=== PATIENT | female | born 1995 | race African-American/Black ===

== ENCOUNTER 2017-01-14 22:50 | Emergency (ER) | payer SELFPAY ==
[~2017-01-14 22:50] MED LIST: CEPH-460 PO; PYRI200T4 PO
[2017-01-14 22:51] VITALS: BP 114/56; PULSE 87; RESP 18; TEMP 97.9; O2SAT 100
== END 2017-01-15 02:15 | disposition left against medical advice (07) ==
LOC: NED 01-15 02:10
DX: R30.0 Dysuria (principal)
CPT/HCPCS: 99281

== ENCOUNTER 2017-10-02 05:41 | Emergency (ER) | payer OTHER ==
[~2017-10-02] VITALS: Ht 157.5 cm; Wt 58.0 kg
[2017-10-02 05:42] VITALS: BP 112/58; PULSE 85; RESP 16; TEMP 99.1; O2SAT 97
[2017-10-02 06:12] VITALS: BP 107/55; PULSE 76; RESP 20; O2SAT 100
--- NOTE | 2017-10-02 06:20 | PD ---
HPI Chief Complaint: GI Complaint Time Seen by Provider: 05:58 Travel History International Travel<30 days: No Contact w/Intl Traveler<30days: No Traveled to known affect area: No History of Present Illness HPI The patient is a 22 year old female who presents to the [facility] emergency department with a history of vomiting with her period over the last few months. Her periods have been more painful than usual recently. The vomiting lasts for 15 hours and occurs during the heaviest part of her cycle on the second day. Her cycles usually last 5-6 days. Her cycle began again yesterday. She has nausea and vomiting x9 that began today. She at times on the third day of her cycle will also develop diarrhea. She denies any sick contacts. She denies any recent antibiotic use. She denies having any recent fevers or chills, neck pain, chest pain, shortness of breath, urinary symptoms, or neurologic symptoms. She had cough and congestion last week that has improved. The patient has a family history of anemia. LMP: 10/01/17. [facility] Past Medical History Narrative Medical The patient's past medical history is significant for a prior ovarian cyst. Medical History: Denies Significant Hx Diminished Hearing: No Tetanus Vaccination: Unknown ?: Not LMP: 09/30/2017 Past Surgical History Surgical History: No Previous Surgery Social History Alcohol Use: Yes (social) Tobacco Use: Yes (5-6 cigs per day.) Substance Use: No Allergies-Medications (Allergen,Severity, Reaction): Coded Allergies: metronidazole (Unverified Allergy, Severe, RASH, 10/02/17) Reported Meds & Prescriptions Reported Meds & Active Scripts Active No Active Prescriptions or Reported Medications Review of Systems Except as stated in HPI: all other systems reviewed are Neg General / Constitutional: No: Fever Eyes: No: Visual changes HENT: No: Headaches Cardiovascular: No: Chest Pain or Discomfort Respiratory: No: Shortness of Breath Gastrointestinal: Positive: Nausea, Vomiting, Diarrhea, Abdominal Pain Genitourinary: Positive: Pelvic Pain, Vaginal Bleeding, No: Dysuria Musculoskeletal: No: Pain Skin: No Rash Neurologic: No: Weakness Psychiatric: No: Depression Endocrine: No: Polydipsia Hematologic/Lymphatic: No: Easy Bruising Physical Exam Narrative General: The patient is a well-developed well-nourished female in no acute distress. Head and Neck exam: Head is normocephalic atraumatic. Eyes: EOMI, pupils are equal round and reactive to light. Nose: Midline septum with pink mucous membranes Mouth: Dentition unremarkable. Moist mucus membranes. Posterior oropharynx is not erythematous. No tonsillar hypertrophy. Uvula midline. Airway patent. Neck: No palpable lymphadenopathy. No nuchal rigidity. No thyromegaly. Cardiovascular: Regular rate and rhythm without murmurs, gallops, or rubs. Lungs: Clear to auscultation bilaterally. No wheezes, rhonchi, or rales. Abdomen: Soft, without tenderness to palpation in all 4 quadrants of the abdomen. No guarding, rebound, or rigidity. Normal bowel sounds are audible. No tenderness on palpation of McBurney's point. Extremities: No clubbing, cyanosis, or edema. 2+ pulses in all 4 extremities. No calf tenderness on palpation. Back: No costovertebral angle tenderness to palpation. Neurologic Exam: Grossly nonfocal. Skin Exam: No rash noted. Intact skin that is warm and dry. Data Data Last Documented VS Vital Signs Date Time Temp Pulse Resp B/P (MAP) Pulse Ox O2 Delivery O2 Flow Rate FiO2 10/02/17 06:34 20 10/02/17 06:33 82 100 Room Air 10/02/17 05:42 99.1 Orders Orders Complete Blood Count With Diff (10/02/17 06:18) Comprehensive Metabolic Panel (10/02/17 06:18) C-Reactive Protein (Crp) (10/02/17 06:18) Lipase (10/02/17 06:18) Urinalysis - C+S If Indicated (10/02/17 06:18) Iv Access Insert/Monitor (10/02/17 06:18) Ecg Monitoring (10/02/17 06:18) Oximetry (10/02/17 06:18) Ed Urine Pregnancytest Poc (10/02/17 06:18) Sodium Chlor 0.9% 1000 Ml Inj (Ns 1000 M (10/02/17 06:45) Ondansetron Inj (Zofran Inj) (10/02/17 06:45) Labs Laboratory Tests Test 10/02/17 06:15 White Blood Count 11.2 TH/MM3 Red Blood Count 3.54 MIL/MM3 Hemoglobin 12.5 GM/DL Hematocrit 35.9 % Mean Corpuscular Volume 101.7 FL Mean Corpuscular Hemoglobin 35.4 PG Mean Corpuscular Hemoglobin Concent 34.8 % Red Cell Distribution Width 12.5 % Platelet Count 272 TH/MM3 Mean Platelet Volume 7.6 FL Neutrophils (%) (Auto) 88.5 % Lymphocytes (%) (Auto) 7.5 % Monocytes (%) (Auto) 3.4 % Eosinophils (%) (Auto) 0.2 % Basophils (%) (Auto) 0.4 % Neutrophils # (Auto) 9.9 TH/MM3 Lymphocytes # (Auto) 0.8 TH/MM3 Monocytes # (Auto) 0.4 TH/MM3 Eosinophils # (Auto) 0.0 TH/MM3 Basophils # (Auto) 0.0 TH/MM3 CBC Comment DIFF FINAL Differential Comment MDM Medical Decision Making Medical Screen Exam Complete: Yes Emergency Medical Condition: Yes Medical Record Reviewed: Yes Differential Diagnosis Viral syndrome, versus dysmenorrhea with vomiting, versus , versus cyclic vomiting syndrome, versus gastroparesis Narrative Course During the course of the patients emergency department visit, the patients history, examination, and differential diagnosis were reviewed with the patient. The patient was placed on a school lunch monitor with oximetry and frequent blood pressure monitoring. The patient had IV access obtained and blood work sent for analysis. The patient was initially provided normal saline 1 L IV fluid bolus, Zofran 4 mg IV. The patient's laboratory studies remarkable for white count 11.2, hemoglobin 12.5, platelets 272 with 88.5 neutrophils. The patient's other laboratory studies are pending at the conclusion of my shift. The patient's case was checked out to the oncoming emergency physician to disposition the patient based on the conclusion of the patient's workup. Diagnosis Primary Impression: Vomiting Qualified Codes: R11.2 - Nausea with vomiting, unspecified Scripts No Active Prescriptions or Reported Meds Britta Vázquez MD Oct 02, 2017 06:20
[2017-10-02 06:33] VITALS: PULSE 82; O2SAT 100
[2017-10-02] MEDS ORDERED: SODIUM CHLOR 0.9% 1000 ML INJ 1,000 ML IV ONE (06:45)
[2017-10-02] MEDS ORDERED: ONDANSETRON HCL 4 MG/2 ML VIAL IV ONE (06:45)
[2017-10-02 06:53] LABS: AUTOMATED NEUTROPHIL # 9.9 TH/MM3 (1.8-7.7); BASOPHIL % 0.4 % (0.0-2.0); EOSINOPHIL % 0.2 % (0.0-4.0); HEMATOCRIT 35.9 % (35.0-46.0); HEMO FLAGS DIFF FINAL; LYMPH % 7.5 % (9.0-44.0); LYMPHOCYTE # 0.8 TH/MM3 (1.0-4.8); MEAN CELL VOLUME 101.7 FL (80.0-100.0); MEAN CORPUSCULAR HEMOGLOBIN 35.4 PG (27.0-34.0); MEAN CORPUSCULAR HGB CONC 34.8 % (32.0-36.0); MONO % 3.4 % (0.0-8.0); NEUT % 88.5 % (16.0-70.0); PLATELET COUNT 272 TH/MM3 (150-450); RED BLOOD COUNT 3.54 MIL/MM3 (4.00-5.30); RED CELL DISTRIBUTION WIDTH 12.5 % (11.6-17.2); WHITE BLOOD COUNT 11.2 TH/MM3 (4.0-11.0)
[2017-10-02 06:57] LABS: BACTERIA, URINE OCC /hpf; BLOOD, URINE MOD (NEG); GLUCOSE,URINE NEG (NEG); KETONE, URINE 80 mg/dL (NEG); MUCUS URINE FEW /lpf (OCC); NITRITE,URINE NEG (NEG); PH, URINE 6.5 (5.0-8.5); SQUAMOUS EPITHELIAL CELL URINE 1 /hpf (0-5); URINE COLOR YELLOW (YELLW/STRAW)
--- NOTE | 2017-10-02 07:01 | PD ---
Physical Exam Date Seen by Provider: Oct 02, 2017 Time Seen by Provider: 06:59 Narrative The patient is a 22-year-old female was initially limited by the previous physician, Dr. Vázquez. Please refer to the initial history, physical, diagnostic evaluation, and treatment modality plan. The patient was signed out at 7 AM with laboratory evaluation pending. Data Data Last Documented VS Vital Signs Date Time Temp Pulse Resp B/P (MAP) Pulse Ox O2 Delivery O2 Flow Rate FiO2 10/02/17 08:31 101 18 113/64 (80) 100 Room Air 10/02/17 05:42 99.1 Orders Orders Complete Blood Count With Diff (10/02/17 06:18) Comprehensive Metabolic Panel (10/02/17 06:18) C-Reactive Protein (Crp) (10/02/17:18) Lipase (10/02/17 06:18) Urinalysis - C+S If Indicated (10/02/17 06:18) Iv Access Insert/Monitor (10/02/17 06:18) Ecg Monitoring (10/02/17 06:18) Oximetry (10/02/17 06:18) Ed Urine Pregnancytest Poc (10/02/17 06:18) Sodium Chlor 0.9% 1000 Ml Inj (Ns 1000 M (10/02/17 06:45) Ondansetron Inj (Zofran Inj) (10/02/17 06:45) Labs Laboratory Tests Test 10/02/17 06:15 White Blood Count 11.2 TH/MM3 Red Blood Count 3.54 MIL/MM3 Hemoglobin 12.5 GM/DL Hematocrit 35.9 % Mean Corpuscular Volume 101.7 FL Mean Corpuscular Hemoglobin 35.4 PG Mean Corpuscular Hemoglobin Concent 34.8 % Red Cell Distribution Width 12.5 % Platelet Count 272 TH/MM3 Mean Platelet Volume 7.6 FL Neutrophils (%) (Auto) 88.5 % Lymphocytes (%) (Auto) 7.5 % Monocytes (%) (Auto) 3.4 % Eosinophils (%) (Auto) 0.2 % Basophils (%) (Auto) 0.4 % Neutrophils # (Auto) 9.9 TH/MM3 Lymphocytes # (Auto) 0.8 TH/MM3 Monocytes # (Auto) 0.4 TH/MM3 Eosinophils # (Auto) 0.0 TH/MM3 Basophils # (Auto) 0.0 TH/MM3 CBC Comment DIFF FINAL Differential Comment Urine Color YELLOW Urine Turbidity CLEAR Urine pH 6.5 Urine Specific [place] 1.036 Urine Protein 30 mg/dL Urine Glucose (UA) NEG mg/dL Urine Ketones 80 mg/dL Urine Occult Blood MOD Urine Nitrite NEG Urine Bilirubin NEG Urine Urobilinogen 4.0 MG/DL Urine Leukocyte Esterase NEG Urine RBC /hpf Urine WBC 2 /hpf Urine Squamous Epithelial Cells 1 /hpf Urine Bacteria OCC /hpf Urine Mucus FEW /lpf Microscopic Urinalysis Comment CULT NOT INDICATED Blood Urea Nitrogen 13 MG/DL Creatinine 0.83 MG/DL Random Glucose 107 MG/DL Total Protein 8.7 GM/DL Albumin 4.5 GM/DL Calcium Level 9.2 MG/DL Alkaline Phosphatase 61 U/L Aspartate Amino Transf (AST/SGOT) 16 U/L Alanine Aminotransferase (ALT/SGPT) 17 U/L Total Bilirubin 0.7 MG/DL Sodium Level 137 MEQ/L Potassium Level 3.3 MEQ/L Chloride Level 105 MEQ/L Carbon Dioxide Level 26.5 MEQ/L Anion Gap 6 MEQ/L Estimat Glomerular Filtration Rate 104 ML/MIN C-Reactive Protein 0.48 MG/DL Lipase 161 U/L [facility] Medical Record Reviewed: Yes Supervised Visit with CHAR: No Interpretation(s) Laboratory Tests Test 10/02/17 06:15 White Blood Count 11.2 TH/MM3 Red Blood Count 3.54 MIL/MM3 Hemoglobin 12.5 GM/DL Hematocrit 35.9 % Mean Corpuscular Volume 101.7 FL Mean Corpuscular Hemoglobin 35.4 PG Mean Corpuscular Hemoglobin Concent 34.8 % Red Cell Distribution Width 12.5 % Platelet Count 272 TH/MM3 Mean Platelet Volume 7.6 FL Neutrophils (%) (Auto) 88.5 % Lymphocytes (%) (Auto) 7.5 % Monocytes (%) (Auto) 3.4 % Eosinophils (%) (Auto) 0.2 % Basophils (%) (Auto) 0.4 % Neutrophils # (Auto) 9.9 TH/MM3 Lymphocytes # (Auto) 0.8 TH/MM3 Monocytes # (Auto) 0.4 TH/MM3 Eosinophils # (Auto) 0.0 TH/MM3 Basophils # (Auto) 0.0 TH/MM3 CBC Comment DIFF FINAL Differential Comment Urine Color YELLOW Urine Turbidity CLEAR Urine pH 6.5 Urine Specific [place] 1.036 Urine Protein 30 mg/dL Urine Glucose (UA) NEG mg/dL Urine Ketones 80 mg/dL Urine Occult Blood MOD Urine Nitrite NEG Urine Bilirubin NEG Urine Urobilinogen 4.0 MG/DL Urine Leukocyte Esterase NEG Urine RBC /hpf Urine WBC 2 /hpf Urine Squamous Epithelial Cells 1 /hpf Urine Bacteria OCC /hpf Urine Mucus FEW /lpf Microscopic Urinalysis Comment CULT NOT INDICATED Blood Urea Nitrogen 13 MG/DL Creatinine 0.83 MG/DL Random Glucose 107 MG/DL Total Protein 8.7 GM/DL Albumin 4.5 GM/DL Calcium Level 9.2 MG/DL Alkaline Phosphatase 61 U/L Aspartate Amino Transf (AST/SGOT) 16 U/L Alanine Aminotransferase (ALT/SGPT) 17 U/L Total Bilirubin 0.7 MG/DL Sodium Level 137 MEQ/L Potassium Level 3.3 MEQ/L Chloride Level 105 MEQ/L Carbon Dioxide Level 26.5 MEQ/L Anion Gap 6 MEQ/L Estimat Glomerular Filtration Rate 104 ML/MIN C-Reactive Protein 0.48 MG/DL Lipase 161 U/L Differential Diagnosis Differential diagnosis includes dysmenorrhea, menorrhagia, menorrhagia, , gastritis, gastroenteritis, dehydration. Narrative Course The patient was initially evaluated by the previous physician, Dr. Vázquez. Please refer to the initial history, physical, diagnostic evaluation, treatment modality plan. The patient was signed out at 7 AM with laboratory evaluation and reevaluation pending. Bedside UA test was negative. UA reveals innumerable RBCs, however, the patient is currently on her menstrual cycle. LFTs and lipase are unremarkable. The patient was reassessed at 10:22 AM, was able to tolerate Gatorade without difficulty, therefore, will be discharged home on Zofran as needed. She is advised to follow-up with a primary physician and return if symptoms worsen or progress. Diagnosis Primary Impression: Vomiting Qualified Codes: R11.2 - Nausea with vomiting, unspecified Patient Instructions: General Instructions Additional Instruction: Clear liquid diet and advance as tolerated. Zofran as needed. Follow-up with a primary physician. Return if symptoms worsen or progress. Med/Other Pt SpecificInfo: Prescription(s) given Scripts Ondansetron Odt (Zofran Odt) 4 Mg Tab 4 MG SL Q6HR Y for Nausea/Vomiting, #10 TAB 0 Refills Prov: Fausto Newman MD 10/02/17 Disposition: 01 DISCHARGE HOME Condition: Stable Fausto Newman MD Oct 02, 2017 07:01
[2017-10-02 07:03] LABS: COMMENT (UR) CULT NOT INDICATED; CULTURE IF INDICATED CULT NOT INDICATED
[2017-10-02 07:09] LABS: ALT (GPT) 17 U/L (10-53); ANION GAP 6 MEQ/L (5-15); AST (GOT) 16 U/L (15-37); BICARBONATE 26.5 MEQ/L (21.0-32.0); BLOOD UREA NITROGEN 13 MG/DL (7-18); CHLORIDE 105 MEQ/L (98-107); GLOMERULAR FILTRATION RATE 104 ML/MIN (>89); POTASSIUM 3.3 MEQ/L (3.5-5.1); SODIUM (NA) 137 MEQ/L (136-145)
[2017-10-02 07:11] LABS: ALKALINE PHOSPHATASE 61 U/L (45-117); TOTAL BILIRUBIN ADULT 0.7 MG/DL (0.2-1.0)
[2017-10-02 08:31] VITALS: BP 113/64; PULSE 101; RESP 18; O2SAT 100
[2017-10-02] MEDS ORDERED: ZOFR4TAB3 SL (10:23)
[2017-10-02 11:11] VITALS: BP 106/57
== END 2017-10-02 11:13 | disposition home or self-care (01) ==
LOC: NEPE 05:41
DX: R11.2 Nausea with vomiting, unspecified (principal); R19.7 Diarrhea, unspecified; F17.210 Nicotine dependence, cigarettes, uncomplicated
CPT/HCPCS: 80053; 81001; 83690; 84703; 85025; 86140; 96361; 96374; 99285; J2405; J7030